=== PATIENT | male | born 2000 | race Caucasian/White ===

== ENCOUNTER 2022-12-09 13:49 | Emergency (ER) | payer OTHER ==
[~2022-12-09] VITALS: Ht 177.8 cm; Wt 81.6 kg
[2022-12-09] MEDS ORDERED: SERT25TA85 PO (14:17)
[2022-12-09] MEDS ORDERED: TRAZ-252 PO (14:17)
[2022-12-09 16:55] VITALS: TEMP 98.2
[2022-12-09] MEDS ORDERED: IBUPROFEN 600MG TAB PO ONE (18:15)
[2022-12-09] MEDS ORDERED: methocarbamoL 500 MG TAB PO ONE (18:15)
[2022-12-09] MEDS ORDERED: IBUP-1022 PO (19:10)
[2022-12-09] MEDS ORDERED: METH-1164 PO (19:10)
[2022-12-09 19:15] VITALS: BP 123/61; O2SAT 100
== END 2022-12-09 19:21 | disposition home or self-care (01) ==
LOC: M ED 13:49
DX: S13.4XXA Sprain of ligaments of cervical spine, initial encounter (principal); S29.012A Strain of muscle and tendon of back wall of thorax, initial encounter; X50.0XXA Overexertion from strenuous movement or load, initial encounter; Y93.B3 Activity, free weights